=== PATIENT | male | born 1970 | race Caucasian/White ===

== ENCOUNTER 2022-04-02 20:59 | Emergency (ER) | payer BC ==
[2022-04-02 21:25] VITALS: BP 122/83; PULSE 72; RESP 20; TEMP 98.9; BMI 23.4
[2022-04-02] MEDS ORDERED: AMOX TR/POT CLAV 875MG/125MG TABLETS (FP) PO ONE (21:40)
[2022-04-02] MEDS ORDERED: AMOX TR/POT CLAV 875MG/125MG TABLETS (FP) ONE (21:56)
== END 2022-04-02 22:07 | disposition home or self-care (01) ==
LOC: FER 20:59
DX: S61.452A Open bite of left hand, initial encounter (principal); W54.0XXA Bitten by dog, initial encounter
CPT/HCPCS: 99283-25

== ENCOUNTER 2023-01-03 07:12 | Emergency (ER) | payer BC ==
[2023-01-03 07:20] VITALS: BP 108/67; PULSE 72; RESP 18; TEMP 98.5; BMI 234.0
[2023-01-03] MEDS ORDERED: FLUORESCEIN NA 1 EA STRIP ONE (07:25)
[2023-01-03] MEDS ORDERED: TETRACAINE 0.5% OPHTH SOLN 2 ML BOTTLE ONE (07:25)
== END 2023-01-03 07:40 | disposition home or self-care (01) ==
LOC: FER 07:12
DX: H57.11 Ocular pain, right eye (principal); S05.01XA Injury of conjunctiva and corneal abrasion without foreign body, right eye, initial encounter; X58.XXXA Exposure to other specified factors, initial encounter
CPT/HCPCS: 99283-25